=== PATIENT | male | born 1965 | race Caucasian/White ===

== ENCOUNTER 2017-01-19 23:52 | Emergency (ER) | payer SELFPAY ==
[~2017-01-19] VITALS: Ht 172.7 cm; Wt 77.1 kg
[2017-01-20 00:25] VITALS: BP 116/77
== END 2017-01-20 00:48 | disposition home or self-care (01) ==
LOC: ER 23:52
DX: L03.012 Cellulitis of left finger (principal); F41.9 Anxiety disorder, unspecified
CPT/HCPCS: A4606; Z7610